=== PATIENT | male | born 1950 | race Caucasian/White ===

== ENCOUNTER 2020-10-11 13:13 | Outpatient (CLI) | payer MEDICARE, MEDICAID | END 2020-10-11 13:14 | disposition home or self-care (01) | LOC: BICCT 13:13 | PROVIDERS: ATTEND Family Medicine | DX: Z12.2 Encounter for screening for malignant neoplasm of respiratory organs (principal); F17.210 Nicotine dependence, cigarettes, uncomplicated | CPT/HCPCS: 71271 ==

== ENCOUNTER 2021-10-15 14:36 | Outpatient (CLI) | payer MEDICARE, MEDICAID | END 2021-10-15 14:37 | disposition home or self-care (01) | LOC: BICCT 14:36 | PROVIDERS: ATTEND Family Medicine | DX: Z12.2 Encounter for screening for malignant neoplasm of respiratory organs (principal); F17.210 Nicotine dependence, cigarettes, uncomplicated; I70.90 Unspecified atherosclerosis; K80.20 Calculus of gallbladder without cholecystitis without obstruction | CPT/HCPCS: 71271 ==

== ENCOUNTER 2021-10-31 00:09 | Inpatient (IN) | payer OTHER, MEDICAID ==
[2021-10-31] MEDS ORDERED: Ondansetron PF 4 MG/2 ML Vial ONE (01:01)
[2021-10-31] MEDS ORDERED: Morphine 4 MG/ML VIAL ONE (01:01)
[2021-10-31 01:47] LABS: #Basophils 0.1 thou/uL (0.0-0.2); #Lymphocytes 1.9 thou/uL (1.20-3.40); #Monocytes 1.6 thou/uL (0.11-0.59); #Neutrophils 10.4 thou/uL (1.40-6.50); %Basophils 0.6 % (0.0-1.0); %Eosinophils 0.2 % (0.0-10.0); %Lymphocytes 13.4 % (21.0-51.0); %Monocytes 11.2 % (0.0-10.0); %Neutrophils 74.8 % (42.0-75.0); Mean Corpuscular HGB CONC 33.7 g/dL (32.0-36.0); Mean Corpuscular Hemoglobin 32.5 pg (27.0-31.0); Mean Corpuscular Volume 96.5 fL (78.0-98.0); Mean Platelet Volume 10.1 fL (7.4-10.4); Platelet Count 124 thou/uL (130-400); RBC Distribution Width 13.6 % (11.5-14.5); White Blood Cell (WBC) Count 13.9 thou/uL (4.8-10.8)
[2021-10-31 02:12] LABS: ALT (SGPT) 17 U/L (8-55); AST (SGOT) 26 U/L (5-34); Albumin 3.9 g/dL (3.4-4.8); Alkaline Phosphatase 66 U/L (40-110); Anion Gap 17 mmol/L (10-20); BUN (Urea Nitrogen) 14 mg/dL (8.4-25.7); Bilirubin, Total 1.1 mg/dL (0.2-1.2); Calc. Creatinine Clearance 0 mL/min (70-130); Calcium 9.3 mg/dL (7.8-10.44); Carbon Dioxide 23 mmol/L (23-31); Chloride 104 mmol/L (98-107); Estimated GFR 92; Globulin 2.9 g/dL (2.4-3.5); Glucose 132 mg/dL (83-110); Lipase 8 U/L (8-78); Potassium 3.8 mmol/L (3.5-5.1); Protein, Total 6.8 g/dL (5.8-8.1); Sodium 140 mmol/L (136-145)
[2021-10-31] MEDS ORDERED: Magnesium Citrate 300 ML BOT PO SCH (04:45)
[2021-10-31] MEDS ORDERED: Acetaminophen 500 MG TAB ONE (06:04)
[2021-10-31] MEDS ORDERED: Mineral Oil ENEMA PR SCH (07:30)
[2021-10-31] MEDS ORDERED: methylPREDNISolone Sod Succ/PF 125 MG/2 ML VIAL ONE (09:20)
[2021-10-31] MEDS ORDERED: Magnesium 2 GM/50 ML BAG (IN WATER) ONE (09:20)
[2021-10-31] MEDS ORDERED: Iopamidol-370 76% 500 ML 1 ML ONE ×2 (12:50→12:56)
[2021-10-31 13:15] VITALS: BMI 32.4
[2021-10-31] MEDS ORDERED: Ondansetron PF 4 MG/2 ML Vial IVP PRN (13:30)
[2021-10-31] MEDS ORDERED: Acetaminophen 325 MG TAB PO PRN ×2 (13:30→23:57)
[2021-10-31] MEDS ORDERED: Ondansetron ODT 4 MG TAB SL PRN (13:30)
[2021-10-31 13:43] LABS: SARS-CoV-2 NAA Rapid Test Not Detected (NotDetected)
[2021-10-31] MEDS ORDERED: Albuterol Sulfate 2.5 mg/3 ml Neb NEB PRN (14:15)
[2021-10-31] MEDS ORDERED: Milk Of Magnesia 30 ML UDCUP PO PRN (14:20)
[2021-10-31 14:51] LABS: Troponin I 0.017 ng/mL (< 0.028)
[2021-10-31] MEDS ORDERED: metFORMIN 500 MG TAB PO SCH (17:00)
[2021-10-31] MEDS: Senokot S 8.6-50 MG TAB PO SCH (20:40)
[2021-11-01 05:19] LABS: #Basophils 0.1 thou/uL (0.0-0.2); #Lymphocytes 1.4 thou/uL (1.20-3.40); #Monocytes 1.5 thou/uL (0.11-0.59); #Neutrophils 13.1 thou/uL (1.40-6.50); %Basophils 0.4 % (0.0-1.0); %Eosinophils 0.1 % (0.0-10.0); %Lymphocytes 8.9 % (21.0-51.0); %Monocytes 9.3 % (0.0-10.0); %Neutrophils 81.3 % (42.0-75.0); Hemoglobin 13.7 g/dL (14.0-18.0); Mean Corpuscular HGB CONC 32.2 g/dL (32.0-36.0); Mean Corpuscular Hemoglobin 31.4 pg (27.0-31.0); Mean Corpuscular Volume 97.4 fL (78.0-98.0); Mean Platelet Volume 10.2 fL (7.4-10.4); Platelet Count 147 thou/uL (130-400); Red Blood Cell (RBC) Count 4.37 mill/uL (4.70-6.10); White Blood Cell (WBC) Count 16.1 thou/uL (4.8-10.8)
[2021-11-01 05:31] LABS: Anion Gap 15 mmol/L (10-20); BUN (Urea Nitrogen) 19 mg/dL (8.4-25.7); Calc. Creatinine Clearance 104 mL/min (70-130); Calcium 9.1 mg/dL (7.8-10.44); Carbon Dioxide 26 mmol/L (23-31); Chloride 104 mmol/L (98-107); Estimated GFR 92; Glucose 168 mg/dL (83-110); Potassium 4.1 mmol/L (3.5-5.1); Sodium 141 mmol/L (136-145)
[2021-11-01] MEDS: Polyethylene Glycol 3350 17 GM Packet PO SCH (08:38)
[2021-11-01] MEDS: Senokot S 8.6-50 MG TAB PO SCH ×2 (08:39→20:15)
[2021-11-01] MEDS: predniSONE 20 MG TAB PO SCH (08:39)
[2021-11-01] MEDS: Nicotine 21 MG PATCH TD SCH (09:17)
[2021-11-01] MEDS: Albuterol Sulfate 2.5 mg/3 ml Neb NEB SCH ×3 (10:41→18:17)
[2021-11-01] MEDS ORDERED: Non-Formulary Item 1 EACH (Tizanidine Hcl [Tizanidine Hcl] 4 MG Capsule) PO SCH (15:00)
[2021-11-01] MEDS: traMADol HCl 50 MG TAB PO SCH ×4 (15:03→21:27)
[2021-11-01] MEDS: tiZANidine HCl 4 MG TAB PO SCH ×2 (15:03→20:15)
[2021-11-01] MEDS: Cilostazol 100 MG TAB PO SCH (15:03)
[2021-11-01] MEDS ORDERED: Non-Formulary Item 1 EACH (Cilostazol [Cilostazol] 50 MG Tablet) PO SCH (16:30)
[2021-11-01] MEDS: Rosuvastatin 20 MG TAB PO SCH (20:15)
[2021-11-02] MEDS ORDERED: Chloraseptic Spray 180 ml Bottle PO PRN (00:16)
[2021-11-02 05:10] LABS: #Lymphocytes 2.2 thou/uL (1.20-3.40); #Neutrophils 8.7 thou/uL (1.40-6.50); %Basophils 0.3 % (0.0-1.0); %Eosinophils 0.1 % (0.0-10.0); %Lymphocytes 18.4 % (21.0-51.0); %Neutrophils 73.2 % (42.0-75.0); Hemoglobin 12.6 g/dL (14.0-18.0); Mean Corpuscular HGB CONC 32.7 g/dL (32.0-36.0); Mean Corpuscular Hemoglobin 31.8 pg (27.0-31.0); Mean Corpuscular Volume 97.4 fL (78.0-98.0); Mean Platelet Volume 9.7 fL (7.4-10.4); Platelet Count 167 thou/uL (130-400); RBC Distribution Width 13.4 % (11.5-14.5); Red Blood Cell (RBC) Count 3.96 mill/uL (4.70-6.10); White Blood Cell (WBC) Count 11.9 thou/uL (4.8-10.8)
[2021-11-02 05:31] LABS: Anion Gap 13 mmol/L (10-20); BUN (Urea Nitrogen) 18 mg/dL (8.4-25.7); Calc. Creatinine Clearance 120 mL/min (70-130); Calcium 8.7 mg/dL (7.8-10.44); Carbon Dioxide 27 mmol/L (23-31); Chloride 105 mmol/L (98-107); Estimated GFR 96; Glucose 137 mg/dL (83-110); Potassium 3.6 mmol/L (3.5-5.1); Sodium 141 mmol/L (136-145)
[2021-11-02] MEDS: Cilostazol 100 MG TAB PO SCH ×2 (06:05→16:46)
[2021-11-02] MEDS: Albuterol Sulfate 2.5 mg/3 ml Neb NEB SCH ×4 (07:17→18:55)
[2021-11-02] MEDS: Aspirin 81 mg Enteric Coated Tablet PO SCH (08:07)
[2021-11-02] MEDS: Nicotine 21 MG PATCH TD SCH (08:08)
[2021-11-02] MEDS: predniSONE 20 MG TAB PO SCH (08:08)
[2021-11-02] MEDS: Polyethylene Glycol 3350 17 GM Packet PO SCH (08:08)
[2021-11-02] MEDS: Senokot S 8.6-50 MG TAB PO SCH ×2 (08:09→21:38)
[2021-11-02] MEDS: Tamsulosin HCl 0.4 MG CAP PO SCH (08:10)
[2021-11-02] MEDS: tiZANidine HCl 4 MG TAB PO SCH ×3 (08:12→21:38)
[2021-11-02] MEDS: traMADol HCl 50 MG TAB PO SCH ×4 (08:13→21:39)
[2021-11-02] MEDS ORDERED: Non-Formulary Item 1 EACH (Rosuvastatin Calcium [Crestor] 40 MG Tablet) PO SCH (09:00)
[2021-11-02] MEDS: Rosuvastatin 20 MG TAB PO SCH (21:38)
[2021-11-02] MEDS: guaiFENesin ER 600 MG TAB PO SCH (21:38)
[2021-11-03 05:21] LABS: #Basophils 0.1 thou/uL (0.0-0.2); #Lymphocytes 2.5 thou/uL (1.20-3.40); #Monocytes 0.8 thou/uL (0.11-0.59); #Neutrophils 6.6 thou/uL (1.40-6.50); %Basophils 1.4 % (0.0-1.0); %Eosinophils 0.3 % (0.0-10.0); %Monocytes 7.7 % (0.0-10.0); %Neutrophils 65.6 % (42.0-75.0); Hemoglobin 12.6 g/dL (14.0-18.0); Mean Corpuscular HGB CONC 32.9 g/dL (32.0-36.0); Mean Corpuscular Hemoglobin 32.2 pg (27.0-31.0); Mean Corpuscular Volume 97.9 fL (78.0-98.0); Mean Platelet Volume 8.7 fL (7.4-10.4); Platelet Count 176 thou/uL (130-400); RBC Distribution Width 13.3 % (11.5-14.5); White Blood Cell (WBC) Count 10.1 thou/uL (4.8-10.8)
[2021-11-03 05:33] LABS: Anion Gap 12 mmol/L (10-20); BUN (Urea Nitrogen) 17 mg/dL (8.4-25.7); Calc. Creatinine Clearance 109 mL/min (70-130); Calcium 8.7 mg/dL (7.8-10.44); Carbon Dioxide 29 mmol/L (23-31); Chloride 105 mmol/L (98-107); Estimated GFR 93; Glucose 113 mg/dL (83-110); Potassium 3.7 mmol/L (3.5-5.1); Sodium 142 mmol/L (136-145)
[2021-11-03] MEDS: Albuterol Sulfate 2.5 mg/3 ml Neb NEB SCH ×2 (07:29→11:02)
[2021-11-03] MEDS: Polyethylene Glycol 3350 17 GM Packet PO SCH (08:21)
[2021-11-03] MEDS: predniSONE 20 MG TAB PO SCH (08:21)
[2021-11-03] MEDS: guaiFENesin ER 600 MG TAB PO SCH (08:22)
[2021-11-03] MEDS: Aspirin 81 mg Enteric Coated Tablet PO SCH (08:22)
[2021-11-03] MEDS: Senokot S 8.6-50 MG TAB PO SCH (08:22)
[2021-11-03] MEDS: Tamsulosin HCl 0.4 MG CAP PO SCH (08:22)
[2021-11-03] MEDS: Cilostazol 100 MG TAB PO SCH ×2 (08:23→15:15)
[2021-11-03] MEDS: tiZANidine HCl 4 MG TAB PO SCH ×2 (08:24→15:16)
[2021-11-03] MEDS: traMADol HCl 50 MG TAB PO SCH ×2 (08:25→12:51)
[2021-11-03] MEDS: Nicotine 21 MG PATCH TD SCH (08:29)
[2021-11-03 15:39] VITALS: BP 147/72; TEMP 98
== END 2021-11-03 16:59 | disposition home or self-care (01) | DRG 189 ==
LOC: ERS 00:09 → 2SW 11:16 → OBSVTOIN 11-02 14:13
PROVIDERS: ADMIT Internal Medicine; ATTEND Internal Medicine
DX: J96.01 Acute respiratory failure with hypoxia (principal); J43.9 Emphysema, unspecified; K59.00 Constipation, unspecified; Z20.822 Contact with and (suspected) exposure to COVID-19; I10 Essential (primary) hypertension; F17.210 Nicotine dependence, cigarettes, uncomplicated; E78.5 Hyperlipidemia, unspecified; E11.9 Type 2 diabetes mellitus without complications; Z79.899 Other long term (current) drug therapy; Z79.82 Long term (current) use of aspirin; Z88.0 Allergy status to penicillin; Z88.2 Allergy status to sulfonamides; Z79.84 Long term (current) use of oral hypoglycemic drugs; Z90.89 Acquired absence of other organs; Z98.890 Other specified postprocedural states
CPT/HCPCS: 36415; 71045; 71275; 74177; 80048; 80053; 83690; 83880; 84484; 85025; 85379; 87070; 87205; 93005; 94640; 96365; 96375; 96376; G0378; J1956; J2270; J2405; J2930; J3475; J7512; J7611; J7620; Q9967; U0002

== ENCOUNTER 2021-11-23 15:43 | Inpatient (IN) | payer OTHER, MEDICAID ==
[2021-11-23] MEDS ORDERED: Acetaminophen 500 MG TAB ONE (16:08)
[2021-11-23] MEDS ORDERED: Vancomycin 1 GM/200 ML BAG ONE (16:08)
[2021-11-23] MEDS ORDERED: Morphine 4 MG/ML VIAL ONE (16:24)
[2021-11-23] MEDS ORDERED: Ketorolac Tromethamine 30 MG/ML VIAL ONE (16:24)
[2021-11-23] MEDS ORDERED: cefTRIAXone\\ROCEPHIN 1 GM VIAL ONE (16:30)
[2021-11-23 16:39] LABS: #Lymphocytes 1.3 thou/uL (1.20-3.40); #Neutrophils 5.4 thou/uL (1.40-6.50); %Basophils 0.4 % (0.0-1.0); %Eosinophils 0.2 % (0.0-10.0); %Monocytes 12.8 % (0.0-10.0); %Neutrophils 69.6 % (42.0-75.0); Hemoglobin 12.2 g/dL (14.0-18.0); Mean Corpuscular Hemoglobin 31.1 pg (27.0-31.0); Mean Corpuscular Volume 94.3 fL (78.0-98.0); Mean Platelet Volume 9.4 fL (7.4-10.4); Platelet Count 116 thou/uL (130-400); RBC Distribution Width 13.2 % (11.5-14.5); Red Blood Cell (RBC) Count 3.91 mill/uL (4.70-6.10); White Blood Cell (WBC) Count 7.8 thou/uL (4.8-10.8)
[2021-11-23 16:53] LABS: ALT (SGPT) 10 U/L (8-55); AST (SGOT) 10 U/L (5-34); Albumin 3.4 g/dL (3.4-4.8); Alkaline Phosphatase 66 U/L (40-110); Anion Gap 15 mmol/L (10-20); BUN (Urea Nitrogen) 12 mg/dL (8.4-25.7); Bilirubin, Total 0.5 mg/dL (0.2-1.2); Calc. Creatinine Clearance 0 mL/min (70-130); Calcium 8.7 mg/dL (7.8-10.44); Carbon Dioxide 24 mmol/L (23-31); Chloride 103 mmol/L (98-107); Estimated GFR 75; Globulin 2.8 g/dL (2.4-3.5); Glucose 229 mg/dL (83-110); Potassium 3.5 mmol/L (3.5-5.1); Protein, Total 6.2 g/dL (5.8-8.1); Sodium 138 mmol/L (136-145)
[2021-11-23 19:08] LABS: Bacteria/HPF 1+ HPF (None Seen); Bilirubin Negative (Negative); Blood, Urine 1+ (Negative); Clarity Turbid (Clear); Glucose, Urine (Dipstick) Normal (Negative); Ketone, Urine Trace mg/dL (Negative); Leukocyte 250 Leu/uL (Negative); Nitrite Negative (Negative); Protein, Urine (Dipstick) 100 mg/dL (Neg-Trace); Specific Gravity, Urine 1.044 (1.002-1.036); Squamous Epithelial 0-3 HPF (0-3); Urobilinogen 3 mg/dL (Less than 2); pH, Urine 5.5 (5.0-9.0)
[2021-11-23] MEDS ORDERED: Ondansetron PF 4 MG/2 ML Vial IVP PRN (20:28)
[2021-11-23] MEDS ORDERED: Acetaminophen 650 MG Suppository PR PRN (20:28)
[2021-11-23] MEDS ORDERED: Ondansetron ODT 4 MG TAB PO PRN (20:28)
[2021-11-23] MEDS ORDERED: Acetaminophen 325 MG TAB PO PRN (20:28)
[2021-11-23 21:38] VITALS: BMI 31.4
[2021-11-23] MEDS: Cefepime 2 GM in Sodium Chloride 0.9% 100 ML IVPB SCH (22:41)
[2021-11-23] MEDS: methylPREDNISolone Sod Succ 40 MG VIAL IVP SCH (22:42)
[2021-11-23] MEDS: Sodium Chloride 0.9% 1,000 ML IV SCH (22:42)
[2021-11-24] MEDS: Doxycycline 100 MG in Sodium Chloride 0.9% 100 ML IVPB SCH ×3 (00:16→21:44)
[2021-11-24] MEDS ORDERED: HumaLOG 300 UNITS/3 ML VIAL SC PRN ×2 (02:01)
[2021-11-24] MEDS ORDERED: Dextrose 5% in Water 1,000 ML IV PRN (02:01)
[2021-11-24] MEDS ORDERED: Dextrose 50% Abboject 50 ML SYRINGE SLOW IVP PRN (02:01)
[2021-11-24] MEDS ORDERED: Polyethylene Glycol 3350 17 GM Packet PO SCH (02:15)
[2021-11-24] MEDS: Bisacodyl 10 MG SUPP PR SCH ×3 (03:16→21:54)
[2021-11-24 03:22] LABS: SARS-CoV-2 NAA Rapid Test Not Detected (NotDetected)
[2021-11-24 06:18] LABS: #Lymphocytes 1.4 thou/uL (1.20-3.40); #Monocytes 0.3 thou/uL (0.11-0.59); %Basophils 0.4 % (0.0-1.0); %Eosinophils 0.2 % (0.0-10.0); %Lymphocytes 20.5 % (21.0-51.0); Hemoglobin 12.8 g/dL (14.0-18.0); Mean Corpuscular HGB CONC 32.6 g/dL (32.0-36.0); Mean Corpuscular Hemoglobin 30.6 pg (27.0-31.0); Mean Corpuscular Volume 93.9 fL (78.0-98.0); Mean Platelet Volume 9.4 fL (7.4-10.4); Platelet Count 135 thou/uL (130-400); RBC Distribution Width 13.2 % (11.5-14.5); White Blood Cell (WBC) Count 6.7 thou/uL (4.8-10.8)
[2021-11-24 06:39] LABS: Anion Gap 14 mmol/L (10-20); BUN (Urea Nitrogen) 11 mg/dL (8.4-25.7); Calc. Creatinine Clearance 108 mL/min (70-130); Calcium 9.1 mg/dL (7.8-10.44); Carbon Dioxide 24 mmol/L (23-31); Chloride 108 mmol/L (98-107); Estimated GFR 94; Glucose 176 mg/dL (83-110); Potassium 4.5 mmol/L (3.5-5.1); Sodium 141 mmol/L (136-145)
[2021-11-24] MEDS: Enoxaparin Sodium 40 MG/0.4 ML SYRINGE SC SCH (09:20)
[2021-11-24] MEDS: Sodium Chloride 0.9% 1,000 ML IV SCH ×2 (09:23→10:59)
[2021-11-24] MEDS: Cefepime 2 GM in Sodium Chloride 0.9% 100 ML IVPB SCH ×2 (10:58→23:05)
[2021-11-24] MEDS ORDERED: Polyethylene Glycol 3350 17 GM Packet PO PRN (13:48)
[2021-11-24] MEDS ORDERED: GoLYTELY 4,000 ml Bottle PO SCH (17:00)
[2021-11-24] MEDS: methylPREDNISolone Sod Succ 40 MG VIAL IVP SCH (21:47)
[2021-11-25] MEDS: traMADol HCl 50 MG TAB PO PRN ×3 (00:33→23:20)
[2021-11-25] MEDS: Sodium Chloride 0.9% 1,000 ML IV SCH ×2 (02:19→10:25)
[2021-11-25] MEDS: Bisacodyl 10 MG SUPP PR SCH ×3 (04:33→20:57)
[2021-11-25 05:30] LABS: #Lymphocytes 2.3 thou/uL (1.20-3.40); #Monocytes 0.8 thou/uL (0.11-0.59); #Neutrophils 3.9 thou/uL (1.40-6.50); %Basophils 0.4 % (0.0-1.0); %Eosinophils 0.4 % (0.0-10.0); %Lymphocytes 32.5 % (21.0-51.0); %Monocytes 11.1 % (0.0-10.0); %Neutrophils 55.6 % (42.0-75.0); Hemoglobin 10.9 g/dL (14.0-18.0); Mean Corpuscular HGB CONC 32.5 g/dL (32.0-36.0); Mean Corpuscular Hemoglobin 30.3 pg (27.0-31.0); Mean Corpuscular Volume 93.5 fL (78.0-98.0); Mean Platelet Volume 9.1 fL (7.4-10.4); Platelet Count 134 thou/uL (130-400); RBC Distribution Width 13.1 % (11.5-14.5); Red Blood Cell (RBC) Count 3.59 mill/uL (4.70-6.10)
[2021-11-25 06:17] LABS: Anion Gap 10 mmol/L (10-20); BUN (Urea Nitrogen) 8 mg/dL (8.4-25.7); Calc. Creatinine Clearance 111 mL/min (70-130); Carbon Dioxide 29 mmol/L (23-31); Chloride 109 mmol/L (98-107); Estimated GFR 94; Glucose 118 mg/dL (83-110); Magnesium 1.9 mg/dL (1.6-2.6); Potassium 4.2 mmol/L (3.5-5.1); Sodium 144 mmol/L (136-145)
[2021-11-25] MEDS: Enoxaparin Sodium 40 MG/0.4 ML SYRINGE SC SCH (08:50)
[2021-11-25] MEDS: Polyethylene Glycol 3350 17 GM Packet PO SCH (08:50)
[2021-11-25] MEDS: Doxycycline 100 MG in Sodium Chloride 0.9% 100 ML IVPB SCH ×2 (08:52→20:52)
[2021-11-25] MEDS: Cefepime 2 GM in Sodium Chloride 0.9% 100 ML IVPB SCH ×2 (10:25→22:33)
[2021-11-25] MEDS ORDERED: Lidocaine 1% PF 5 ML VIAL ONE (13:12)
[2021-11-25] MEDS ORDERED: PROPOFOL 200 MG/20 ML VIAL ONE (13:12)
[2021-11-25] MEDS: methylPREDNISolone Sod Succ 40 MG VIAL IVP SCH (20:57)
[2021-11-26] MEDS: Sodium Chloride 0.9% 1,000 ML IV SCH (00:48)
[2021-11-26] MEDS: Bisacodyl 10 MG SUPP PR SCH ×3 (04:16→20:55)
[2021-11-26] MEDS: Enoxaparin Sodium 40 MG/0.4 ML SYRINGE SC SCH (09:15)
[2021-11-26] MEDS: Cefepime 2 GM in Sodium Chloride 0.9% 100 ML IVPB SCH ×2 (09:16→23:23)
[2021-11-26] MEDS: Doxycycline 100 MG in Sodium Chloride 0.9% 100 ML IVPB SCH ×2 (10:43→22:36)
[2021-11-26] MEDS: Polyethylene Glycol 3350 17 GM Packet PO SCH (10:44)
[2021-11-26] MEDS ORDERED: Cyclobenzaprine 10 MG TAB PO PRN (11:53)
[2021-11-26] MEDS: methylPREDNISolone Sod Succ 40 MG VIAL IVP SCH (22:35)
[2021-11-27] MEDS: Bisacodyl 10 MG SUPP PR SCH ×2 (04:00→12:22)
[2021-11-27] MEDS ORDERED: predniSONE 20 MG TAB PO SCH (08:00)
[2021-11-27] MEDS: Polyethylene Glycol 3350 17 GM Packet PO SCH (09:20)
[2021-11-27] MEDS: Doxycycline 100 MG in Sodium Chloride 0.9% 100 ML IVPB SCH (09:21)
[2021-11-27] MEDS: Enoxaparin Sodium 40 MG/0.4 ML SYRINGE SC SCH (09:22)
[2021-11-27] MEDS ORDERED: guaiFENesin ER 600 MG TAB PO PRN (10:07)
[2021-11-27] MEDS ORDERED: guaiFENesin ER 600 MG TAB PO SCH (10:15)
[2021-11-27 13:43] VITALS: BP 157/77; TEMP 98.3
[2021-11-27] MEDS ORDERED: Doxycycline 100 MG CAP PO SCH (21:00)
== END 2021-11-27 14:20 | disposition home or self-care (01) | DRG 699 ==
LOC: ERS 15:43 → SJJU 19:46 → OBSVTOIN 11-24 16:47
PROVIDERS: ADMIT Internal Medicine; ATTEND Internal Medicine
PROC: 0DBK8ZZ Excision of Ascending Colon, Via Natural or Artificial Opening Endoscopic (ICD-10-PCS; principal; 2021-11-25)
PROC: 0DBL8ZZ Excision of Transverse Colon, Via Natural or Artificial Opening Endoscopic (ICD-10-PCS; 2021-11-25)
PROC: 0DBN8ZZ Excision of Sigmoid Colon, Via Natural or Artificial Opening Endoscopic (ICD-10-PCS; 2021-11-25)
PROC: 0DBP8ZZ Excision of Rectum, Via Natural or Artificial Opening Endoscopic (ICD-10-PCS; 2021-11-25)
PROC: 0DBM8ZZ Excision of Descending Colon, Via Natural or Artificial Opening Endoscopic (ICD-10-PCS; 2021-11-25)
DX: N99.89 Other postprocedural complications and disorders of genitourinary system (principal); K56.7 Ileus, unspecified; N39.0 Urinary tract infection, site not specified; Z16.24 Resistance to multiple antibiotics; Z20.822 Contact with and (suspected) exposure to COVID-19; E11.9 Type 2 diabetes mellitus without complications; B96.20 Unspecified Escherichia coli [E. coli] as the cause of diseases classified elsewhere; K59.09 Other constipation; R91.8 Other nonspecific abnormal finding of lung field; F17.210 Nicotine dependence, cigarettes, uncomplicated; D64.9 Anemia, unspecified; J43.9 Emphysema, unspecified; N40.1 Benign prostatic hyperplasia with lower urinary tract symptoms; N39.498 Other specified urinary incontinence; E66.9 Obesity, unspecified; K64.8 Other hemorrhoids; K57.30 Diverticulosis of large intestine without perforation or abscess without bleeding; K63.5 Polyp of colon; Y84.8 Other medical procedures as the cause of abnormal reaction of the patient, or of later complication, without mention of misadventure at the time of the procedure; Z85.51 Personal history of malignant neoplasm of bladder; Z88.0 Allergy status to penicillin; Z88.2 Allergy status to sulfonamides; Z79.899 Other long term (current) drug therapy; Z79.82 Long term (current) use of aspirin; Z79.84 Long term (current) use of oral hypoglycemic drugs; Z79.52 Long term (current) use of systemic steroids; Z98.890 Other specified postprocedural states; Z90.89 Acquired absence of other organs; Z68.31 Body mass index [BMI] 31.0-31.9, adult
CPT/HCPCS: 36415; 36416; 71045; 74176; 80048; 80053; 81003; 81015; 83605; 83735; 85025; 87040; 87077; 87086; 87186; 88305; 94640; 96365; 96372; 96375; 96376; G0378; J0692; J0696; J1650; J1815; J1885; J2270; J2405; J2704; J2920; J3370; J3490; J7050; J7512; J7620; U0002

== ENCOUNTER 2021-12-23 19:00 | Outpatient (CLI) | payer OTHER, MEDICAID | END 2021-12-23 19:01 | disposition home or self-care (01) | LOC: SLEEPLAB 19:00 | PROVIDERS: ATTEND Family Medicine | DX: G47.33 Obstructive sleep apnea (adult) (pediatric) (principal); R06.83 Snoring; G47.10 Hypersomnia, unspecified; E66.9 Obesity, unspecified; Z68.30 Body mass index [BMI] 30.0-30.9, adult | CPT/HCPCS: 95811 ==

== ENCOUNTER 2024-03-01 12:57 | Outpatient (CLI) | payer OTHER, MEDICAID | END 2024-03-01 12:58 | disposition home or self-care (01) | LOC: BICCT 12:57 | PROVIDERS: ATTEND Internal Medicine Hematology & Oncology | DX: Z12.2 Encounter for screening for malignant neoplasm of respiratory organs (principal); F17.210 Nicotine dependence, cigarettes, uncomplicated; R91.1 Solitary pulmonary nodule | CPT/HCPCS: 71271 ==